=== PATIENT | female | born 1965 | race African-American/Black ===

== ENCOUNTER → 2017-02-08 | Outpatient (CLI) | payer BC ==
--- NOTE | ~2017-02-08 | MY11 ---
[facility] A Service of [facility] RADIOLOGY TEXT RESULTS PATIENT: PARI CORTEZ LOCATION: [facility] : 67 UNIT #: [id number] AGE: [address]: CAPRI PEÑA MD SEX: F ORDER DR: [id number] [facility] [address] [place], [place] [address] [id number] O MR#: [id number] Acc #: [id number] NAME: PARI CORTEZ : 1965 SEX: F STUDY DATE/TIME: 02/08/2017 7:57 UNIT: [facility] ROOM: STUDY DESCRIPTION: MY Mammogram Screening Dig Chi Attending Physician: Capri Peña M.D. Referring Physician: Capri Peña M.D. Ordering Physician: Capri Peña M.D. Primary Care Physician: Capri Peña M.D. MEDICAL IMAGING REPORT This report is preliminary unless electronic signature is present EXAM Bilateral digital screening mammogram with CAD DATE 02/08/2017 HISTORY Family history of breast cancer in a great-grandmother. No personal history of breast cancer or current complaints. History of benign left breast biopsy. COMPARISON Bilateral screening mammogram 05/24/2015, 08/07/2013, 07/22/2012. FINDINGS CC and MLO views were obtained of each breast utilizing digital technique and reviewed with an FDA-approved CAD device. A linear marker was placed in the subareolar left breast upper, outer quadrant corresponding to surgical scar. Heterogeneously dense fibroglandular tissue is present bilaterally. No new, dominant nodule is identified. Scattered benign-appearing calcifications are seen within each breast suggesting changes of sclerosing adenosis, very similar to previous exam. No new dominant suspicious cluster of microcalcifications are seen. No definite nonsurgical architectural distortion. IMPRESSION 1. Benign findings. Routine bilateral screening mammogram is recommended in 1 year. Patient's over the age of 40 are entered into a reminder system with target due date for the next mammogram. [facility] A Service of [facility] RADIOLOGY TEXT RESULTS PATIENT: PARI CORTEZ LOCATION: [facility] : 67 UNIT #: [id number] AGE: [address]: CAPRI PEÑA MD SEX: F ORDER DR: BIRADS: 2 Benign findings Dictated by... Connie Dickerson M.D. THIS IS AN ELECTRONICALLY VERIFIED REPORT Connie Dickerson M.D. at 02/09/2017 7:08 AM ARVIND/magaly TD: 02/08/2017 12:38 JOB #: [id number] MEDICAL IMAGING REPORT Page 1 of 1 COPY
== END | disposition home or self-care (01) ==
LOC: CWCC 07:39
DX: Z12.31 Encounter for screening mammogram for malignant neoplasm of breast (principal); Z80.3 Family history of malignant neoplasm of breast; Z98.890 Other specified postprocedural states
CPT/HCPCS: G0202